=== PATIENT | female | born 1950 | race Asian ===

== ENCOUNTER 2019-06-08 16:03 | Emergency (ER) | payer OTHER ==
[~2019-06-08] VITALS: Ht 157.5 cm; Wt 103.0 kg
== END 2019-06-08 20:25 | disposition home or self-care (01) ==
LOC: ER 16:03
DX: I16.0 Hypertensive urgency (principal); I10 Essential (primary) hypertension; R06.02 Shortness of breath

== ENCOUNTER 2021-01-20 11:32 | Outpatient (CLI) | payer OTHER | END 2021-01-20 11:38 | disposition home or self-care (01) | LOC: SONOGRAMA 11:32 | DX: E04.2 Nontoxic multinodular goiter (principal); D34 Benign neoplasm of thyroid gland; E04.8 Other specified nontoxic goiter ==

== ENCOUNTER 2021-03-17 10:31 | Outpatient (CLI) | payer OTHER | END 2021-03-17 10:45 | disposition home or self-care (01) | LOC: SONOGRAMA 10:31 | PROVIDERS: ATTEND Pathology Anatomic Pathology & Clinical Pathology | DX: D34 Benign neoplasm of thyroid gland (principal); E06.5 Other chronic thyroiditis; E04.8 Other specified nontoxic goiter ==